=== PATIENT | male | born 1965 | race Caucasian/White ===

== ENCOUNTER 2016-09-22 21:26 | Inpatient (IN) | payer MEDICAID, OTHER ==
[~2016-09-22] VITALS: Ht 165.1 cm; Wt 107.0 kg
[2016-09-22] MEDS ORDERED: INSULIN LISPRO 100 UNIT/ML VIAL SC STA (22:22)
[2016-09-22] MEDS ORDERED: SOD CHLORIDE 0.9% 1,000 ML IV STA (22:22)
--- NOTE | 2016-09-22 23:21 | RADRPT ---
PROCEDURE: XR Chest. CLINICAL INDICATION: Hyperglycemia. TECHNIQUE: Single frontal view of the chest was obtained COMPARISON: None FINDINGS: The heart and mediastinum are within normal limits. The lungs are clear. There is no pleural effusion or pneumothorax. IMPRESSION: No acute disease. RPTAT: [facility] Physician Emmanuel Date Time Electronically viewed and signed by Physician Emmanuel on 09/22/2016 23:21 RS/
[2016-09-22 23:27] LABS: CHLORIDE 99 mmol/L (97-110); POTASSIUM 4.5 mmol/L (3.5-5.1); SODIUM 138 mmol/L (135-144)
[2016-09-22 23:29] LABS: BILIRUBIN,INDIRECT 0.2 mg/dl (0-1.1); BILIRUBIN,TOTAL 0.2 mg/dl (0.2-1.3); CREATININE 0.91 mg/dl (0.61-1.24)
[2016-09-22 23:30] LABS: ALANINE AMINOTRANSFERASE 45 IU/L (13-69); ALBUMIN/GLOBULIN RATIO 1.21; ALKALINE PHOSPHATASE 244 IU/L (42-121); ANION GAP 19 (8-16); ASPARTATE AMINO TRANSFERASE 32 IU/L (15-46); BLOOD UREA NITROGEN 27 mg/dl (7-20); CALCIUM 9.5 mg/dl (8.4-10.2); CARBON DIOXIDE 25 mmol/L (21-31); TOTAL PROTEIN 7.3 g/dl (6.1-8.1)
[2016-09-22 23:35] LABS: ADD UMIC NO; URINE BILIRUBIN (Dip) NEGATIVE (NEGATIVE); URINE BLOOD (Dip) NEGATIVE (NEGATIVE); URINE COLOR LT. YELLOW (YELLOW); URINE GLUCOSE (Dip) >=1000 % (NEGATIVE); URINE KETONES (Dip) NEGATIVE (NEGATIVE); URINE LEUKOCYTE ESTERASE (Dip) NEGATIVE (NEGATIVE); URINE NITRITE (Dip) NEGATIVE (NEGATIVE); URINE TOTAL PROTEIN (Dip) NEGATIVE (NEGATIVE); URINE UROBILINOGEN (Dip) 0.2 E.U./dL (0.1-1.0)
[2016-09-22 23:36] LABS: BASOPHILS % 0.4 % (0.0-2.0); EOSINOPHILS # 0.2 10^3/ul (0.0-0.5); EOSINOPHILS % 1.7 % (0.0-7.0); HEMATOCRIT 46.1 % (42.0-52.0); HEMOGLOBIN 16.1 g/dl (14.0-18.0); LYMPHOCYTES % 21.4 % (15.0-51.0); MEAN CORPUSCULAR HEMOGLOBIN 31.3 pg (29.0-33.0); MEAN CORPUSCULAR HGB CONC 34.9 g/dl (32.0-37.0); MEAN CORPUSCULAR VOLUME 89.8 fl (82.0-101.0); MEAN PLATELET VOLUME 10.9 fl (7.4-10.4); MONOCYTE # 0.5 10^3/ul (0.3-0.9); MONOCYTES % 5.5 % (0.0-11.0); NEUTROPHIL # 6.6 10^3/ul (1.6-7.5); PLATELET COUNT 260 10^3/UL (140-440); RED BLOOD COUNT 5.13 10^6/ul (4.70-6.10); RED CELL DISTRIBUTION WIDTH 12.6 % (11.5-14.5); UNCORRECTED WBC 9.2 10^3/ul (4.8-10.8); WHITE BLOOD COUNT 9.2 10^3/ul (4.8-10.8)
[2016-09-22 23:43] LABS: CONDITION 1
[2016-09-22] MEDS ORDERED: SODIUM CHLORIDE 0.9% 1L BAG IV* STA (23:55)
[2016-09-23] MEDS ORDERED: VANCOMYCIN 1 GM (PMX) 250 ML IVPB ONE
[2016-09-23] MEDS ORDERED: LEVOFLOXACIN 750MG/D5W (PMX) 150 ML IVPB ONE
[2016-09-23 00:11] LABS: GLUCOSE 597 mg/dl (70-220); TROPONIN-I < 0.012 ng/ml (0.00-0.12)
[2016-09-23] MEDS ORDERED: INSULIN LISPRO 100 UNIT/ML VIAL SC STA (00:28)
[2016-09-23 00:34] VITALS: TEMP 98.1
--- NOTE | 2016-09-23 01:06 | ERA ---
ER Documentation Chief Complaint Date/Time DATE: 09/23/16 TIME: 01:04 Chief Complaint dizziness,feeling thirsty,accucheck in Intake reads HI HPI This is a 51-year-old male comes in with dizziness feeling thirsty. He said his Accu-Cheks have been running high at home. Patient has history of diabetes. Patient states he is compliant with his medications. Denies any nausea vomiting. Denies any fever or chills. Denies any other current complaints. ROS All systems reviewed and are negative except as per history of present illness. Allergies Allergies: Coded Allergies: Penicillins (Verified Allergy, Unknown, rash, 09/22/16) PMhx/Soc Medical and Surgical Hx: pt denies Medical Hx, pt denies Surgical Hx Hx Alcohol Use: No Hx Substance Use: No Hx Tobacco Use: No Smoking Status: Never smoker Physical Exam Vitals Vital Signs Date Time Temp Pulse Resp B/P Pulse Ox O2 Delivery O2 Flow Rate FiO2 09/23/16 00:34 98.1 94 18 140/78 96 Room Air 09/22/16 21:29 98.1 71 18 146/81 96 Physical Exam Const: [] Head: Atraumatic Eyes: Normal Conjunctiva ENT: Normal External Ears, Nose and Mouth. Neck: Full range of motion..~ No meningismus. Resp: Clear to auscultation bilaterally Cardio: Regular rate and rhythm, no murmurs Abd: Soft, non tender, non distended. Normal bowel sounds Skin: No petechiae or rashes Back: No midline or flank tenderness Ext: No cyanosis, or edema Neur: Awake and alert Psych: Normal Mood and Affect Result Diagram: 09/22/16224409/22/162244 Results 24 hrs Laboratory Tests Test 09/22/16 21:32 09/22/16 22:30 09/22/16 22:38 09/22/16 22:45 Bedside Glucose > 595mg/dL 576mg/dL Lactic Acid Level 2.3mmol/L Urine Bilirubin NEGATIVE Urine Clarity CLEAR Urine Color LT. YELLOW Urine Glucose >=1000% Urine Hemoglobin NEGATIVE Urine Ketones NEGATIVE Urine Leukocyte Esterase NEGATIVE Urine Nitrite NEGATIVE Urine Specific [place] <=1.005 Urine Total Protein NEGATIVE Urine Urobilinogen 0.2 E.U./dL Urine pH 6.5 Alanine Aminotransferase (ALT/SGPT) 45IU/L Albumin 4.0g/dl Albumin/Globulin Ratio 1.21 Alkaline Phosphatase 244IU/L Anion Gap 19 Aspartate Amino Transf (AST/SGOT) 32IU/L Basophils # 0.010^3/ul Basophils % 0.4% Blood Morphology Comment Blood Urea Nitrogen 27mg/dl Calcium Level 9.5mg/dl Carbon Dioxide Level 25mmol/L Chloride Level 99mmol/L Creatinine 0.91mg/dl Direct Bilirubin 0.00mg/dl Eosinophils # 0.210^3/ul Eosinophils % 1.7% Globulin 3.30g/dl Glucose Level 597mg/dl Hematocrit 46.1% Hemoglobin 16.1g/dl Indirect Bilirubin 0.2mg/dl Lymphocytes # 2.010^3/ul Lymphocytes % 21.4% Mean Corpuscular Hemoglobin 31.3pg Mean Corpuscular Hemoglobin Concent 34.9g/dl Mean Corpuscular Volume 89.8fl Mean Platelet Volume 10.9fl Monocytes # 0.510^3/ul Monocytes % 5.5% Neutrophils # 6.610^3/ul Neutrophils % 71.0% Nucleated Red Blood Cells # 0.010^3/ul Nucleated Red Blood Cells % 0.0/100WBC Platelet Count 04181^3/UL Potassium Level 4.5mmol/L Red Blood Count 5.1310^6/ul Red Cell Distribution Width 12.6% Sodium Level 138mmol/L Total Bilirubin 0.2mg/dl Total Protein 7.3g/dl Troponin I < 0.012ng/ml White Blood Count 9.210^3/ul Test 09/22/16 23:46 Bedside Glucose 479mg/dL Current Medications Medications (Trade) Dose Ordered Sig/Nadine Route PRN Reason Start Time Stop Time Status Last Admin Dose Admin Sodium Chloride (NS) 1,000 ml @ 1,000 mls/hr Q1H STAT IV 09/22/16 22:22 09/22/16 23:21 DC 09/22/16 22:51 Insulin Human Lispro (Humalog) 10 unit ONCE STAT SC 09/22/16 22:22 09/22/16 22:25 DC 09/22/16 22:45 Sodium Chloride 3260 ml 3,260 ml BOLUS OVER 2 HOURS STAT IV* 09/22/16 23:55 09/22/16 23:59 DC 09/23/16 00:39 Vancomycin HCl 250 ml @ 125 mls/hr ONCE ONCE IVPB 09/23/16 00:00 09/23/16 01:59 Levofloxacin/ Dextrose (Levaquin 750 Mg/ D5W 150 ml (Pmx)) 150 ml @ 100 mls/hr ONCE ONCE IVPB 09/23/16 00:00 09/23/16 01:29 09/23/16 00:39 Insulin Human Lispro (Humalog) 10 unit ONCE STAT SC 09/23/16 00:28 09/23/16 00:29 DC 09/23/16 00:40 Procedures/MDM EKG: Rate/Rhythm: Normal Sinus Rhythm QRS, ST, T-waves: No changes consistent w/ acute ischemia Impression: No evidence of ischemia or arrhythmia Chest X-ray 1V Interpreted by me: Soft Tissue: No acute abnormalities Bones: No acute abnormalities Mediastinum/Cardiac Silhouette/Lungs: No acute abnormalities Patient's infectious symptoms have not stabilized and the patient is at risk of rapid decompensation. The patient will be admitted for careful hydration, antibiotic therapy, and infectious source control. Severe Sepsis Assessment: Infectious Source: Unknown End organ damage indicated by: [Lactate > 2.0 mmol/L Severe Sepsis Managment: Blood Cultures X 2 before broad spectrum antibiotics initiated within 3 hours of recognition. 30 ml/kg NS bolus Completed Initial Lactate: 2.3 Repeat Lactate pending Critical Care: Time: 45 minutes Treatments/Evaluations: Emergent fluid management, while maintaining close respiratory support. Immediate broad spectrum antibiotic therapy. Simultaneous assessment for possible sources in order to direct therapy. Consideration for invasive and chemical support to prevent respiratory or cardiac collapse. Septic Shock Assessment (1 hour post 30 ml/kg fluid bolus): Hypotension (SBP < 90 or 40 mmHg drop, MAP < 65): [No] Lactic acid > 4.0 [No] Perfusion Reassessment for Septic Shock: Temp 98.9, Pulse 88, RR 18, BP 117/76 Heart Exam: [Tachycardic] Lung Exam: [No Crackles] Capillary Refill: [Delayed] Peripheral Pulses: [Radially present] Skin: [Mottled, pale] Accepting Care Team: Current data and ongoing care discussed. Time: 11:30 Primary Provider: Hospitalist Consulting: [[place]] Outstanding Data: none Departure Diagnosis: Primary Impression: Sepsis Qualified Code: A41.9 - Sepsis, due to unspecified organism Additional Impression: Hyperglycemia Condition: Serious DIONICIO YANG Sep 23, 2016 01:06
[2016-09-23 03:18] VITALS: Ht 165.1 cm; Wt 107.0 kg
[2016-09-23] MEDS ORDERED: ACETAMINOPHEN 325 MG TAB PO PRN (03:30)
[2016-09-23 03:38] VITALS: BP 124/61; PULSE 67; RESP 20
[2016-09-23] MEDS ORDERED: GLUCOSE GEL 15 GRAM TUBE BUCCAL PRN (04:00)
[2016-09-23] MEDS ORDERED: GLUCAGON 1 MG INJ IM PRN (04:00)
[2016-09-23] MEDS ORDERED: DEXTROSE 50% 50 ML SYRINGE IV PRN ×2 (04:00)
[2016-09-23] MEDS ORDERED: GLUCOSE GEL 15 GRAM TUBE PO PRN ×2 (04:00)
--- NOTE | 2016-09-23 06:23 | HP ---
DATE OF ADMISSION: 09/23/2016 CHIEF COMPLAINT: Generalized weakness, dizziness, and elevated blood glucose. HISTORY OF PRESENT ILLNESS: The patient is a 51-year-old male with a history of diabetes who presen shreya to the emergency department with the above stated chief complaint. He also reported that he has been feeling thirsty with frequent urination. He said his Accu-Cheks have been high when he checks at home. He denied any chest pain, shortness of breath, abdominal pain, or urinary symptoms. When he presented to the ER, his vitals were within acceptable range. Laboratory values show a gluc ose of 597, normal bicarbonate of 25. His anion gap was 19 and BUN 27. Urine shows no ketones. Hi s CBC is within normal limits. Chest x-ray shows no acute disease. He was given insulin, IV fluid, and also a dose of Levaquin and admitted for further treatment. His recent Accu-Chek shows a gluco se of 283. REVIEW OF SYSTEMS: A 12-point review was performed and negative except as mentioned in HPI. PAST MEDICAL HISTORY: Diabetes. PAST SURGICAL HISTORY: Denies. ALLERGIES: PENICILLIN. HOME MEDICATIONS: None listed. PHYSICAL EXAMINATION: VITAL SIGNS: Stable. GENERAL: No acute distress. He actually looks comfortable. He is obese. HEENT: No obvious head deformity. Pupils reactive to light. Extraocular movements intact. CARDIOVASCULAR: Regular rate and rhythm. No extra sounds. LUNGS: Clear. ABDOMEN: Soft, nontender, nondistended. Positive bowel sounds. EXTREMITIES: No edema. NEUROLOGIC: No focal deficits. LABORATORY DATA: Pertinent positives as mentioned in the HPI. IMAGING: Chest x-ray read as unremarkable. IMPRESSION: 1. Diabetes with hyperglycemia. 2. Dizziness, slight generalized weakness, and excessive thirst, secondary to above. PLAN: Newly placed on insulin. We will check A1c. He will have diabetes teaching. He will also r eceive IV fluid. We will consider endocrine consult. Further workup and management per clinical course. Dictated By: DIONICIO VALENZUELA/JULIAN Conf#: [id number] DID#: [id number]
[2016-09-23 06:30] LABS: BASOPHILS % 0.3 % (0.0-2.0); EOSINOPHILS # 0.2 10^3/ul (0.0-0.5); EOSINOPHILS % 1.5 % (0.0-7.0); HEMATOCRIT 39.6 % (42.0-52.0); LYMPHOCYTES # 2.3 10^3/ul (0.8-2.9); LYMPHOCYTES % 23.6 % (15.0-51.0); MEAN CORPUSCULAR HEMOGLOBIN 31.7 pg (29.0-33.0); MEAN CORPUSCULAR HGB CONC 35.4 g/dl (32.0-37.0); MEAN CORPUSCULAR VOLUME 89.5 fl (82.0-101.0); MONOCYTE # 0.5 10^3/ul (0.3-0.9); MONOCYTES % 4.6 % (0.0-11.0); NEUTROPHIL # 6.9 10^3/ul (1.6-7.5); PLATELET COUNT 210 10^3/UL (140-440); RED BLOOD COUNT 4.42 10^6/ul (4.70-6.10); RED CELL DISTRIBUTION WIDTH 12.6 % (11.5-14.5); UNCORRECTED WBC 9.9 10^3/ul (4.8-10.8); WHITE BLOOD COUNT 9.9 10^3/ul (4.8-10.8)
[2016-09-23 06:36] LABS: POTASSIUM 3.7 mmol/L (3.5-5.1)
[2016-09-23 06:39] LABS: ALBUMIN/GLOBULIN RATIO 1.11; BILIRUBIN,INDIRECT 0.1 mg/dl (0-1.1); BILIRUBIN,TOTAL 0.1 mg/dl (0.2-1.3); CREATININE 0.61 mg/dl (0.61-1.24); TOTAL PROTEIN 5.7 g/dl (6.1-8.1)
[2016-09-23 06:40] LABS: CHOL/HDL RATIO 5.4 RATIO
[2016-09-23 06:45] LABS: CONDITION 1
[2016-09-23 08:04] VITALS: BP 111/56; RESP 18
[2016-09-23] MEDS ORDERED: INSULIN ASPART [NOVOLOG] 3 ML PEN SC SCH ×3 (08:15→18:00)
[2016-09-23] MEDS: HEPARIN 5,000 UNIT/0.5 ML SYG SC SCH ×2 (08:25→21:19)
[2016-09-23] MEDS: INSULIN ASPART [NOVOLOG] 3 ML PEN SC SCH ×5 (08:25→21:19)
[2016-09-23] MEDS: INSULIN GLARGINE [LANtus] 3 ML PEN SC SCH (08:26)
--- NOTE | 2016-09-23 14:46 | PN ---
Date/Time of Note Date/Time of Note DATE: 09/23/16 TIME: 14:45 Assessment/Plan VTE Prophylaxis VTE Prophylaxis Intervention: heparin Lines/Catheters IV Catheter Type (from Nrs): Saline Lock Urinary Cath still in place: No Assessment/Plan Assessment/Plan 1. Newly diagnosed DM, increase lantus, keep premeal novolog Subjective 24 Hr Interval Summary Free Text/Dictation no fever or chills. no pain Exam/Review of Systems Vital Signs Vitals Vital Signs Date Time Temp Pulse Resp B/P Pulse Ox O2 Delivery O2 Flow Rate FiO2 09/23/16 08:04 98.3 67 18 111/56 96 09/23/16 03:38 Room Air Intake and Output 09/22/16 09/22/16 09/23/16 15:00 23:00 07:00 Intake Total 3510 ml Balance 3510 ml Exam Constitutional: alert, oriented, well developed Psych: nl mood/affect, no complaints Head: atraumatic, normocephalic Eyes: EOMI, PERRL, nl lids ENMT: nl external ears & nose, nl lips & teeth, nl nasal mucosa & septum Neck: non-tender, supple Respiratory: clear to auscultation, normal air movement, No congested cough, No crackles/rales, No diminished breath sounds, No intercostal retraction, No labored breathing, No other, No respirations, No tactile fremitus, No wheezing Cardiovascular: nl pulses, regular rate and rhythm, No S3, No S4, No bruits, No diastolic murmur, No edema, No gallop, No irregular rhythm, No jugular venous distention (JVD), No murmurs/extra sounds, No other, No rub, No systolic murmur Gastrointestinal: nl liver, spleen, non-tender, soft, No ascites, No bowel sounds, No distended, No firm, No hepatomegaly, No mass , No other, No rebound or guarding, No splenomegaly, No surgical scars, No tender Musculoskeletal: nl extremities to inspection Extremities: normal pulses, No calf tenderness, No clubbing, No cyanosis, No edema, No other, No palpable cord, No pitting pedal edema, No tenderness Neurological: TICKET SELLER II-XII intact, nl mental status, nl speech, nl strength Skin: nl turgor, rash or lesions Lymph: nl lymph nodes Results Result Diagram: 09/23/16 0525 09/23/16 0525 Results 24 hrs Laboratory Tests Test 09/22/16 21:32 09/22/16 22:30 09/22/16 22:38 09/22/16 22:45 Bedside Glucose > 595 *H 576 *H Lactic Acid Level 2.3 H Urine Bilirubin NEGATIVE Urine Clarity CLEAR Urine Color LT. YELLOW Urine Glucose >=1000 Urine Hemoglobin NEGATIVE Urine Ketones NEGATIVE Urine Leukocyte Esterase NEGATIVE Urine Nitrite NEGATIVE Urine Specific [place] <=1.005 L Urine Total Protein NEGATIVE Urine Urobilinogen 0.2 E.U./dL Urine pH 6.5 Alanine Aminotransferase (ALT/SGPT) 45 Albumin 4.0 Albumin/Globulin Ratio 1.21 Alkaline Phosphatase 244 H Anion Gap 19 H Aspartate Amino Transf (AST/SGOT) 32 Basophils # 0.0 Basophils % 0.4 Blood Morphology Comment Blood Urea Nitrogen 27 H Calcium Level 9.5 Carbon Dioxide Level 25 Chloride Level 99 Creatinine 0.91 Direct Bilirubin 0.00 Eosinophils # 0.2 Eosinophils % 1.7 Globulin 3.30 H Glucose Level 597 *H Hematocrit 46.1 Hemoglobin 16.1 Indirect Bilirubin 0.2 Lymphocytes # 2.0 Lymphocytes % 21.4 Mean Corpuscular Hemoglobin 31.3 Mean Corpuscular Hemoglobin Concent 34.9 Mean Corpuscular Volume 89.8 Mean Platelet Volume 10.9 H Monocytes # 0.5 Monocytes % 5.5 Neutrophils # 6.6 Neutrophils % 71.0 Nucleated Red Blood Cells # 0.0 Nucleated Red Blood Cells % 0.0 Platelet Count 260 Potassium Level 4.5 Red Blood Count 5.13 Red Cell Distribution Width 12.6 Sodium Level 138 Total Bilirubin 0.2 Total Protein 7.3 Troponin I < 0.012 White Blood Count 9.2 Test 09/22/16 23:46 09/23/16 01:08 09/23/16 02:28 09/23/16 02:31 Bedside Glucose 479 *H 393 H 283 H Lactic Acid Level 1.9 Test 09/23/16 05:25 09/23/16 08:01 09/23/16 08:11 09/23/16 10:55 Alanine Aminotransferase (ALT/SGPT) 37 Albumin 3.0 #L Albumin/Globulin Ratio 1.11 Alkaline Phosphatase 160 H Anion Gap 15 Aspartate Amino Transf (AST/SGOT) 26 Basophils # 0.0 Basophils % 0.3 Blood Urea Nitrogen 18 # Calcium Level 8.0 L Carbon Dioxide Level 23 Chloride Level 109 # Cholesterol Level 153 Cholesterol/HDL Ratio 5.4 Creatinine 0.61 Direct Bilirubin 0.00 Eosinophils # 0.2 Eosinophils % 1.5 Globulin 2.70 Glucose Level 180 # HDL Cholesterol 28 Hematocrit 39.6 L Hemoglobin 14.0 Hemoglobin A1c 11.1 H Indirect Bilirubin 0.1 LDL Cholesterol, Calculated 76 Lactic Acid Level 1.4 Lymphocytes # 2.3 Lymphocytes % 23.6 Mean Corpuscular Hemoglobin 31.7 Mean Corpuscular Hemoglobin Concent 35.4 Mean Corpuscular Volume 89.5 Mean Platelet Volume 10.0 Monocytes # 0.5 Monocytes % 4.6 Neutrophils # 6.9 Neutrophils % 70.0 Nucleated Red Blood Cells # 0.0 Nucleated Red Blood Cells % 0.0 Platelet Count 210 Potassium Level 3.7 Red Blood Count 4.42 L Red Cell Distribution Width 12.6 Sodium Level 143 Total Bilirubin 0.1 L Total Protein 5.7 #L Triglycerides Level 243 H White Blood Count 9.9 Bedside Glucose 482 *H 246 H 303 H Test 09/23/16 11:54 09/23/16 14:30 Bedside Glucose 279 H 317 H Medications Medications Current Medications Insulin Glargine (Lantus) 15 unit DAILY@08 SC Last administered on 09/23/16 08: 26; Admin Dose 15 UNIT; Start 09/23/16 at 08:00 Diagnostic Test (Pha) (Accucheck) 1 ea 02 XX ; Start 09/24/16 at 02:00 Acetaminophen (Tylenol Tab) 650 mg Q6H PRN PO PAIN AND OR ELEVATED TEMP; Start 09/23/16 at 03:30 Heparin Sodium (Porcine) (Heparin (5000 Units/0.5 ml)) 5,000 unit BID SC Last administered on 09/23/16 08:25; Admin Dose 5,000 UNIT; Start 09/23/16 at 09:00 Miscellaneous Information 1 ea NOTE XX ; Start 09/23/16 at 04:00 Glucose (Glutose) 15 gm Q15M PRN PO DECREASED GLUCOSE; Start 09/23/16 at 04:00 Glucose (Glutose) 22.5 gm Q15M PRN PO DECREASED GLUCOSE; Start 09/23/16 at 04:00 Dextrose (D50w Syringe) 25 ml Q15M PRN IV DECREASED GLUCOSE; Start 09/23/16 at 04:00 Dextrose (D50w Syringe) 50 ml Q15M PRN IV DECREASED GLUCOSE; Start 09/23/16 at 04:00 Glucagon (Glucagen) 1 mg Q15M PRN IM DECREASED GLUCOSE; Start 09/23/16 at 04:00 Glucose (Glutose) 15 gm Q15M PRN BUCCAL DECREASED GLUCOSE; Start 09/23/16 at 04: 00 Influenza Virus Vaccine (Fluzone) 0.5 ml ONCE ONCE IM* ; Start 09/24/16 at 09:00 ; Stop 09/24/16 at 09:01 MARY JO HERNÁNDEZ MD Sep 23, 2016 14:46
[2016-09-24] MEDS ORDERED: ACCUCHECK XX SCH (02:00)
[2016-09-24] MEDS: ACCUCHECK XX SCH (02:29)
[2016-09-24] MEDS: INSULIN GLARGINE [LANtus] 3 ML PEN SC SCH (08:05)
[2016-09-24] MEDS: INSULIN ASPART [NOVOLOG] 3 ML PEN SC SCH ×7 (08:06→20:42)
[2016-09-24 08:46] VITALS: BP 127/75; PULSE 64; RESP 18
[2016-09-24] MEDS ORDERED: INFLUENZA VIRUS VACCINE 0.5 ML (DISPENSING) IM* ONE (09:00)
[2016-09-24] MEDS: HEPARIN 5,000 UNIT/0.5 ML SYG SC SCH ×2 (09:41→20:32)
--- NOTE | 2016-09-24 12:19 | PN ---
Date/Time of Note Date/Time of Note DATE: 09/24/16 TIME: 12:17 Assessment/Plan VTE Prophylaxis VTE Prophylaxis Intervention: heparin Lines/Catheters IV Catheter Type (from Nrs): Saline Lock Urinary Cath still in place: No Assessment/Plan Assessment/Plan 1. Newly diagnosed DM, not controlled, increase lantus, on premeal novolog Subjective 24 Hr Interval Summary Free Text/Dictation no complaint afebrile Exam/Review of Systems Vital Signs Vitals Vital Signs Date Time Temp Pulse Resp B/P Pulse Ox O2 Delivery O2 Flow Rate FiO2 09/24/16 08:46 98.1 64 18 127/75 97 Room Air Intake and Output 09/23/16 09/23/16 09/24/16 15:00 23:00 07:00 Intake Total 1280 ml Balance 1280 ml Exam Constitutional: alert, oriented, well developed Psych: nl mood/affect, no complaints Head: atraumatic, normocephalic Eyes: EOMI, nl conjunctiva, nl lids ENMT: nl external ears & nose, nl lips & teeth, nl nasal mucosa & septum Neck: non-tender, supple Respiratory: clear to auscultation, normal air movement, No congested cough, No crackles/rales, No diminished breath sounds, No intercostal retraction, No labored breathing, No other, No respirations, No tactile fremitus, No wheezing Cardiovascular: nl pulses, regular rate and rhythm, No S3, No S4, No bruits, No diastolic murmur, No edema, No gallop, No irregular rhythm, No jugular venous distention (JVD), No murmurs/extra sounds, No other, No rub, No systolic murmur Gastrointestinal: nl liver, spleen, non-tender, soft, No ascites, No bowel sounds, No distended, No firm, No hepatomegaly, No mass , No other, No rebound or guarding, No splenomegaly, No surgical scars, No tender Musculoskeletal: nl extremities to inspection Neurological: CHARTER REPRESENTATIVE II-XII intact, nl mental status, nl speech, nl strength Skin: nl turgor, rash or lesions Results Result Diagram: 09/23/16 0525 09/23/16 0525 Results 24 hrs Laboratory Tests Test 09/23/16 14:30 09/23/16 16:56 09/23/16 21:01 09/24/16 02:16 Bedside Glucose 317 H 187 208 239 H Test 09/24/16 07:45 09/24/16 11:39 Bedside Glucose 277 H 239 H Medications Medications Current Medications Insulin Glargine (Lantus) 15 unit DAILY@08 SC Last administered on 09/24/16 08: 05; Admin Dose 15 UNIT; Start 09/23/16 at 08:00 Diagnostic Test (Pha) (Accucheck) 1 ea 02 XX Last administered on 09/24/16 02: 29; Admin Dose 1 EA; Start 09/24/16 at 02:00 Acetaminophen (Tylenol Tab) 650 mg Q6H PRN PO PAIN AND OR ELEVATED TEMP; Start 09/23/16 at 03:30 Heparin Sodium (Porcine) (Heparin (5000 Units/0.5 ml)) 5,000 unit BID SC Last administered on 09/24/16 09:41; Admin Dose 5,000 UNIT; Start 09/23/16 at 09:00 Miscellaneous Information 1 ea NOTE XX ; Start 09/23/16 at 04:00 Glucose (Glutose) 15 gm Q15M PRN PO DECREASED GLUCOSE; Start 09/23/16 at 04:00 Glucose (Glutose) 22.5 gm Q15M PRN PO DECREASED GLUCOSE; Start 09/23/16 at 04:00 Dextrose (D50w Syringe) 25 ml Q15M PRN IV DECREASED GLUCOSE; Start 09/23/16 at 04:00 Dextrose (D50w Syringe) 50 ml Q15M PRN IV DECREASED GLUCOSE; Start 09/23/16 at 04:00 Glucagon (Glucagen) 1 mg Q15M PRN IM DECREASED GLUCOSE; Start 09/23/16 at 04:00 Glucose (Glutose) 15 gm Q15M PRN BUCCAL DECREASED GLUCOSE; Start 09/23/16 at 04: 00 MARY JO HERNÁNDEZ MD Sep 24, 2016 12:18
[2016-09-24 19:26] VITALS: BP 135/75; RESP 20
[2016-09-25] MEDS: ACCUCHECK XX SCH (02:00)
[2016-09-25] MEDS ORDERED: INSULIN GLARGINE [LANtus] 3 ML PEN SC SCH (08:00)
[2016-09-25 08:12] VITALS: BP 120/70; RESP 18
[2016-09-25] MEDS: INSULIN ASPART [NOVOLOG] 3 ML PEN SC SCH ×4 (08:22→12:27)
[2016-09-25] MEDS: HEPARIN 5,000 UNIT/0.5 ML SYG SC SCH (10:02)
[2016-09-25] MEDS ORDERED: LANT3I SC (15:43)
[2016-09-25] MEDS ORDERED: NOVO3I SC ×4 (15:43)
--- NOTE | 2016-09-25 16:00 | DS ---
Date/Time of Note Date/Time of Note DATE: 09/25/16 TIME: 15:58 Discharge Summary Admission/Discharge Info Admit Date/Time Sep 23, 2016 at 00:38 Discharge Date/Time Final Diagnosis 1. Newly diagnosed DM, improving on lantus, on premeal novolog, follow up with PCP Patient Condition: Stable Hospital Course he patient is a 51-year-old male with a history of diabetes who presented to the emergency department with the above stated chief complaint. He also reported that he has been feeling thirsty with frequent urination. He said his Accu-Cheks have been high when he checks at home. He denied any chest pain, shortness of breath, abdominal pain, or urinary symptoms. When he presented to the ER, his vitals were within acceptable range. Laboratory values show a glucose of 597, normal bicarbonate of 25. His anion gap was 19 and BUN 27. Urine shows no ketones. His CBC is within normal limits. Chest x-ray shows no acute disease. He was given insulin, IV fluid, and also a dose of Levaquin and admitted for further treatment. Patient is put on lantus with premeal insulin and on sliding scale. Blood glucose is improving. Patient will follow up with PCP for further insulin adjustment. Home Meds Active Scripts Insulin Glargine* (Lantus*) 100 Unit/Ml Soln, 24 UNIT SC DAILY@08 for 30 Days Prov:MARY JO HERNÁNDEZ MD 09/25/16 Insulin Aspart* (Novolog Insulin Pen*) 100 Unit/Ml Soln, 8 UNIT SC WITH DINNER for 30 Days Prov:MARY JO HERNÁNDEZ MD 09/25/16 Insulin Aspart* (Novolog Insulin Pen*) 100 Unit/Ml Soln, 8 UNIT SC WITH LUNCH for 30 Days Prov:MARY JO HERNÁNDEZ MD 09/25/16 Insulin Aspart* (Novolog Insulin Pen*) 100 Unit/Ml Soln, 8 UNIT SC WITH BREAKFAST for 30 Days Prov:MARY JO HERNÁNDEZ MD 09/25/16 Insulin Aspart* (Novolog Insulin Pen*) 100 Unit/Ml Soln, 0 UNIT SC WITH MEALS BEDTIME for 30 Days Prov:MARY JO HERNÁNDEZ MD 09/25/16 Follow-up Plan PCP in one week Pending Labs Laboratory Tests Test 09/24/16 17:08 09/24/16 20:25 09/25/16 02:24 09/25/16 07:38 Bedside Glucose 148mg/dL (70-220) 188mg/dL (70-220) 166mg/dL (70-220) 210mg/dL (70-220) Test 09/25/16 11:56 Bedside Glucose 265mg/dL (70-220) MARY JO HERNÁNDEZ MD Sep 25, 2016 16:00
[2016-09-26] MEDS ORDERED: INSULIN GLARGINE [LANtus] 3 ML PEN SC SCH (08:00)
== END 2016-09-25 18:15 | disposition home or self-care (01) | DRG 639 ==
LOC: E/R 21:26 → MS2 09-23 00:38
PROVIDERS: ADMIT Internal Medicine; ATTEND Internal Medicine
DX: E11.65 Type 2 diabetes mellitus with hyperglycemia (principal)
CPT/HCPCS: 36415; 71010; 80053; 80061; 81003; 82962; 83036; 83605; 84484; 85025; 87040; 87086; 90686; 96365; 96372; 96375; J1815; J1956; J3370; J7030